=== PATIENT | female | born 1935 | race Caucasian/White ===

== ENCOUNTER 2023-09-11 18:30 | Emergency (ER) | payer MEDICARE ==
[2023-09-11] MEDS ORDERED: methylPREDNISolone Sod Succ/PF 125 MG/2 ML VIAL ONE (19:19)
[2023-09-11] MEDS ORDERED: Ipratropium/Albuterol 3 ML NEB ONE ×2 (19:19→20:01)
[2023-09-11 19:28] LABS: Influenza A by NAA Not Detected (NotDetected); Influenza B by NAA Not Detected (NotDetected); SARS-CoV-2 NAA Rapid Test Not Detected (NotDetected)
[2023-09-11] MEDS ORDERED: Amoxicillin/Potassium Clav 875 MG TAB ONE (20:01)
[2023-09-11] MEDS ORDERED: Azithromycin 250 MG TAB ONE (20:12)
== END 2023-09-11 20:16 | disposition home or self-care (01) ==
LOC: MADERS 18:30
DX: J18.9 Pneumonia, unspecified organism (principal); J45.909 Unspecified asthma, uncomplicated; F17.200 Nicotine dependence, unspecified, uncomplicated; I10 Essential (primary) hypertension; E78.5 Hyperlipidemia, unspecified; F17.210 Nicotine dependence, cigarettes, uncomplicated; Z79.899 Other long term (current) drug therapy
CPT/HCPCS: 71045; 96372; J2930; J7620